=== PATIENT | female | born 1950 | race Caucasian/White ===

== ENCOUNTER 2019-03-26 13:09 | Inpatient (IN) | payer MEDICARE, OTHER ==
[~2019-03-26] VITALS: Ht 172.7 cm; Wt 89.7 kg
--- NOTE | ~2019-03-26 | OP ---
PATIENT NAME: MOOKIE SUAREZ MEDICAL RECORD: [id number] :50 [facility] ADMISSION DATE:04/04/19 SURGEON: LINWOOD BARONE MD DATE OF OPERATION: 04/04/2019 SURGEON: Linwood Barone MD ANESTHESIA: General endotracheal, Dr. Hardin. OPERATION PERFORMED: Right carotid endarterectomy with patch angioplasty. PREOPERATIVE DIAGNOSIS: Severe right internal carotid artery stenosis. POSTOPERATIVE DIAGNOSIS: Severe right internal carotid artery stenosis. INDICATION FOR OPERATION: Severe right internal carotid artery stenosis. FINDINGS AT OPERATION: Severe right internal carotid artery stenosis. There were no EEG changes with clamping or unclamping of the carotid artery. ESTIMATED BLOOD LOSS: Less than 100 cc. DESCRIPTION OF PROCEDURE: After informed consent, adequate preoperative medication evaluation, the patient was brought to the operating room and placed on the table in the supine position. After induction of general endotracheal anesthesia and application of appropriate monitoring devices, the right neck and chest were prepped and draped in a sterile field, utilizing Betadine scrub, alcohol, and Betadine solution. Betadine-impregnated drape was also used. An oblique incision was made in the skin crease. Dissection carried down to the fascia. Hemostasis maintained with electrocautery. The facial vein was identified and divided. Utilizing sharp dissection, the common carotid, internal and external carotid arteries were dissected free from surrounding structures, protecting the neurological structures. The patient was given a calculated dose of heparin, after 3 minutes, clamps were applied. After 2 minutes, no EEG change. The arteriotomy was made and extended with Barnes scissors. Artery underwent endarterectomy sharply. Artery underwent extensive debridement and irrigation. Utilizing a CorMatrix vascular patch and running 6-0 Prolene suture, the arteriotomy was closed with a patch angioplasty technique. All maneuvers to remove trapped air were performed. The clamps were removed sequentially. There were no EEG changes. The patient was given a calculated dose of protamine to reverse the heparin. Hemostasis was achieved. A #7 Omari-Medrano drain was left in the depths of wound and brought through the base of the neck. Neck was again irrigated. Instrument count and sponge count were correct times 2. Neck was closed in layers utilizing 3-0 Vicryl on the platysma, 5-0 subcuticular Monocryl on the skin. Sterile dressings were applied. The patient tolerated the procedure well and was transferred to the CV ICU in satisfactory condition. TRANSINT:[id number] Voice Confirmation ID: [id number] DOCUMENT ID: [id number] OPERATIVE REPORT [id number] MOOKIE SUAREZ EDWARD MD CC: [id number] DICTATION DATE: 04/04/19 1045 CHILD PSYCHOLOGIST: 04/04/19 1315 [place] [address]
[2019-04-02] MEDS ORDERED: PLAVIX75 MG PO (11:29)
[2019-04-02] MEDS ORDERED: LEXAPRO20 MG PO (11:30)
[2019-04-02] MEDS ORDERED: ASPIRIN EC81 M1 PO (11:30)
[2019-04-02] MEDS ORDERED: LISINOPRIL20 MG PO (11:30)
[2019-04-02] MEDS ORDERED: SYNTHROID75 MCG PO (11:30)
[2019-04-02] MEDS ORDERED: TOPAMAX100 MG PO (11:31)
[2019-04-02] MEDS ORDERED: OMEPRAZOLE20 M1 PO (11:31)
[2019-04-02] MEDS ORDERED: CELEXA20 MG PO (11:32)
[2019-04-02 12:41] LABS: HEMATOCRIT 43.9 % (36.0-48.0); HEMOGLOBIN 14.2 g/dL (12-16); MCH 31.3 pg (26.0-34.0); MCHC 32.3 g/dL (31.0-37.0); MCV 96.7 fL (80.0-100.0); MEAN PLATELET VOLUME 11.4 fL (7.4-10.4); RBC 4.54 10x6/uL (4.00-5.40); RDW 13.8 % (11.5-14.5); WBC 6.1 10x3/uL (4.8-10.8)
[2019-04-02 12:52] LABS: INR 1.04 (0.85-1.17); PROTIME 13.1 SECONDS (11.6-15.0)
[2019-04-02 12:53] LABS: APTT 30.1 SECONDS (22.8-39.4)
[2019-04-02 13:15] LABS: ALBUMIN 3.7 g/dL (3.4-5.0); ANION GAP 14.6 mmol/L (8-16); BILIRUBIN - TOTAL 0.24 mg/dL (0.2-1.3); CALCIUM 8.7 mg/dL (8.5-10.1); CARBON DIOXIDE 24.3 mmol/L (21.0-32.0); CREATININE - SERUM 0.9 mg/dL (0.6-1.3); POTASSIUM - SERUM 3.9 mmol/L (3.5-5.1); PROTEIN - SERUM 6.9 g/dL (6.4-8.2)
[2019-04-04] VITALS (53 sets, daily range): BP systolic 110–175; BP diastolic 52–103; BMI 27.3; BMI 29.3
[2019-04-04] MEDS ORDERED: BUSPAR10 MG PO (05:26)
[2019-04-04] MEDS ORDERED: TEMAZEPAM30 MG PO (05:28)
[2019-04-04] MEDS ORDERED: OXYBUTYNIN CHLOR5 MG PO (05:29)
[2019-04-04] MEDS ORDERED: LIPITOR40 MG PO (05:29)
[2019-04-04 06:17] LABS: APPEARANCE HAZY (CLEAR); BACTERIA FEW /hpf (NEGATIVE); BILIRUBIN NEGATIVE (NEGATIVE); COLOR YELLOW (YELLOW); EPITHELIAL CELLS OCC /hpf (0-5); GLUCOSE NEGATIVE (NEGATIVE); KETONE NEGATIVE (NEGATIVE); NITRITE NEGATIVE (NEGATIVE); PROTEIN NEGATIVE (NEGATIVE); RED CELLS - URINE RARE /hpf (0-5); SPECIFIC GRAVITY 1.015 (1.005-1.020); WHITE CELLS - URINE OCC /hpf (NEGATIVE)
[2019-04-04 06:18] LABS: CALCIUM OXALATE CRYSTALS OCC /hpf (NONE SEEN); TALC POWDER CRYSTALS RARE /hpf (NONE SEEN)
--- NOTE | 2019-04-04 14:37 | NUR ---
PT PERFORMING I.S. EXERCISES. PULLS [id number]. SPRITE PROVIDED AT THIS TIME. WILL CONTINUE TO MONITOR.
--- NOTE | 2019-04-04 15:04 | NUR ---
RE-ASSESSMENT COMPLETED. PT RESTING COMFORTABLY. NO FEVER NOTED. ON CLEVIPREX AT 8MG/HR AND NITRO AT 16.67MCG/MIN. SBP IN 130S PER CORA. ICE BAG ON RIGHT SIDE OF NECK. EMPTIED 20ML FROM LUDIN DRAIN AND RECOMPRESSD. STERILE GLOVES AND CLOROPREP USED. NO FURTHER NEEDS AT THIS TIME. WILL CONTINUE TO MONITOR.
--- NOTE | 2019-04-04 17:27 | NUR ---
SITTING UP IN BED EATING AT THIS TIME. NO SIGNS OF NAUSEA NOTED. WILL CONTINUE TO MONITOR.
--- NOTE | 2019-04-04 19:00 | NUR ---
REPORT RECEIVED, SHIFT ASSESSMENT COMPLETE PER FLOW SHEET, PT SITTING UP IN BED AWAKE AND ALERT x4, ANSWERS QUESTIONS APPROPRIATLY, RT UPPER CHEST LUDIN DRAIN COMPRESSED, RED DRAINAGE NOTED IN LUDIN BULB, DRSG C/D/I, RCEA SITE C/D/I DRSG SUPPORTED WITH TEGADERM DRSG, CRITICORE VARELA CATH WITH CLEAR YELLOW VOID, STATLOCK SECURED TO RT UPPER THIGH, BLE TYE HOSE AND SCD'S, PULSES PALPABLE AND SENSORY PRESENT IN ALL EXTREMITIES, LEFT SUBCLAVIAN CVL PATENT DRSG C/D/I, RT RADIAL ART LINE ZEROED WITH GOOD WAVEFORM NOTED ON CM, VSS, NSR ON CM, CALL LIGHT IN REACH, BED ALARM ON, WILL CONTINUE TO MONITOR
--- NOTE | 2019-04-04 21:30 | NUR ---
MEDS GIVEN PER MAR/ORDERS, NO ACUTE S/S OF DISTRESS NOTED, PT ABLE TO SWALLOW LIQUIDS AND MEDS, PT C/O INCISIONAL ACHING PAIN RATED 4/10 ON NUMERIC PAIN SCALE, PRN ULTRAM PAIN MED GIVEN PER MAY/ORDERS, VSS, NSR ON CM, LARGE CUP ICE WATER GIVEN PER REQUEST, CALL LIGHT IN REACH, BED ALARM ON, WILL CONTINUE TO MONITOR
--- NOTE | 2019-04-04 23:00 | NUR ---
REASSESSMENT COMPLETE PER FLOW SHEET, NO ACUTE CHANGES FROM PRIOR ASSESSMENT, PT AWAKE AND ALERT WATCHING TV, ANSWERS ALL QUESTIONS APPROPRIATLY, DENIES PAIN OR NEEDS AT THIS TIME, I/S COMPLETED [id number] WITH GOOD EFFORT, TCDB COMPLETED, VSS, NSR ON CM, CALL LIGHT IN REACH, BED ALARM ON, WILL CONTINUE TO MONITOR
[2019-04-05] VITALS (57 sets, daily range): BP systolic 101–149; BP diastolic 46–91
--- NOTE | 2019-04-05 01:00 | NUR ---
PT RESTING IN BED WITH EYES CLOSED, WAKES EASY WITH MINIMAL STEMULI, AAOx4, DENIES PAIN OR NEEDS AT THIS TIME, VSS, REPOSITIONED IN BED FOR COMFORT, CALL LIGHT IN REACH, WILL CONTINUE TO MONITOR
--- NOTE | 2019-04-05 03:00 | NUR ---
REASSESSMENT COMPLETE PER FLOW SHEET, NO ACUTE CHANGES FROM PRIOR ASSESSMENT, PT AAOx4, DENIES PAIN AT THIS TIME, REPOSITIONED FOR COMFORT, VSS, NSR ON CM, ALL DRSG'S C/D/I, I/S COMPLETED [id number] WITH GOOD EFFORT, TCDB COMPLETED, LARGE CUP ICE WATER GIVEN PER REQUEST, CALL LIGHT IN REACH, BED ALARM ON, WILL CONTINUE TO MONITOR
--- NOTE | 2019-04-05 07:13 | NUR ---
SHIFT REPORT RECEIVED. AWAKE AND ALERT. RATES PAIN 4/10 ON NECK. REPORTS SORE THROAT. R NECK DRESSING INPLACE. RU CHEST LUDIN DRAIN WITH DRESSING IN PLACE. SEROSANG DRAINAGE NOTED. LEFT SUBCLAVIAN CVL WITH ZINACEF AT 11.4ML/HR, PLASMOLYTE AT 30ML/HR AND NITORGLYCERIN AT 20MCG/MIN. ORAL TEMP 98.2. 02 AT 1L NC. RIGHT RADIAL CORA IN PLACE, SECURED WITH WRIST PROTECTOR. VARELA CATHETER IN PLACE WITH YELLOW URINE NOTED. SCD'S IN PLACE. SAFETY MEASURES IN PLACE. CALL LIGHT IN REACH. WILL CONTINUE TO MONITOR.
--- NOTE | 2019-04-05 10:32 | NUR ---
VARELA CATHETER AND RIGHT RADIAL CORA DC'D PER DR. BARONE. LOPRESSOR GIVEN PER ORDERS. PT RESTING COMFORTABLY IN BED. SPOUSE AT BEDSIDE. WILL CONTINUE TO MONITOR.
--- NOTE | 2019-04-05 13:07 | NUR ---
AMBULATED TO BATHROOM WITH ASSISTANCE. UNMEASURED VOID AT THIS TIME. SITTING ON SIDE OF BED. CALL LIGHT IN REACH. WILL CONTINUE TO MONITOR.
--- NOTE | 2019-04-05 13:15 | NUR ---
TRANSFERRED TO CHAIR AT THIS TIME. UNSTEADY GAIT. NEEDS ASSISTANCE WHEN AMBULATING.
--- NOTE | 2019-04-05 14:32 | NUR ---
AMBULATED ABOUT 300FT WITH PHYSICAL THERAPY. UNTEADY GAIT NOTED. PHYSICAL THERAPY RECOMMENDED PT AMBULATE WITH CANE AT HOME. SBP 186 AFTER AMBULATION. MELISSA SINCLAIR WITH DR. BARONE NOTIFIED. WILL LET PT SETTLE DOWN FROM WALK AND RECHECK BP AGAIN.
--- NOTE | 2019-04-05 17:05 | NUR ---
AMBULATED TO BATHROOM WITH ASSISTANCE. MEAL TRAY DELIVERED AND SET UP. SPOUSE AT BEDSIDE. WILL CONTINUE TO MONITOR.
--- NOTE | 2019-04-05 19:00 | NUR ---
REPORT RECEIVED. RECEIVED PATIETN IN BED. AWAKE ALERT AND ORIENTED X 4. SPEECH CLEAR. MONITORS CONNECTED TO PATIENT WITH ALARMS SET. VSS. ASSESSMENT COMPLETED PER FLOW SHEET WITH NO ACUTE DISTRESS OBSERVED. CALL LIGHT IN REACH AND ABLE TO UTILIZE TO MAKE NEEDS KNOWN.
--- NOTE | 2019-04-05 21:00 | NUR ---
PM MEDS TAKEN WITHOUT DIFF. VSS
--- NOTE | 2019-04-05 23:00 | NUR ---
RESTING WITH EYES CLOSED, EASILY ROUSED AND ALERT. VSS. REASSESSMENT COMPLETED PER FLOW SHEET WITH WITH NO ACUTE DISTRESS OBSERVED. CALL LIGHT IN REACH
[2019-04-06] VITALS (12 sets, daily range): BP systolic 109–148; BP diastolic 59–84; Ht 172.7 cm; Wt 89.7 kg
--- NOTE | 2019-04-06 01:00 | NUR ---
RESTING WITH EYES CLOSED, EASILY ROUSED AND ALERT. VSS
--- NOTE | 2019-04-06 03:00 | NUR ---
RESTING WITH EYES CLOSED, EASILY ROUSED AND ALERT. VSS
--- NOTE | 2019-04-06 05:00 | NUR ---
RESTING WITH EYES CLOSED EASILY ROUSED AND ALERT. VSS. REFUSED CHG BATH THIS AM STATES WILL WAIT TO SHOWER AT HOME. CALL LIGHT WITH IN REACH.
--- NOTE | 2019-04-06 10:56 | NUR ---
DR BARONE AT BEDSIDE-SPOKE WITH PT REGARDING STATUS-AND POSSIBLE
[2019-04-06] MEDS ORDERED: METOPROLOL TART50 MG PO (10:59)
--- NOTE | 2019-04-06 12:17 | NUR ---
ECHOCARDIOGRAM COMPLETE-PT REMAINS IN UNIT
--- NOTE | 2019-04-06 13:49 | NUR ---
DISCHARGE FROM DR BARONE RECTRISTIANVED ULTRAM 50MG PO GIVEN-/C'D PER PROTOCOL-L CVL D DISCHARGED VIA WHEELCHAIR HOME
--- NOTE | 2019-04-08 16:01 | MORECARE ---
CASE MANAGEMENT DISCHARGE SUMMARY PATIENT: MOOKIE SUAREZ UNIT: [id number] ADM DATE: 04/04/19 AGE: 69 : 50 SEX: F [facility] AUTHOR: AVA,DOC PHYSICIAN: REFERRING PHYSICIAN: LINWOOD BARONE MD DATE OF SERVICE: 04/08/19 Discharge Plan Patient Name: MOOKIE SUAREZ Facility: [facility]:[place] : 1950 Planned Disposition: Anticipated Discharge Date: Discharge Date: 04/06/2019 Expected LOS: Initial Reviewer: [email or web address] Initial Review Date: 04/06/2019 Generated: 04/08/19 5:00 pm Comments DCP- Discharge Planning Updated by [email or web address]: Gisele Gramajo on 04/08/19 2:[address] LATE ENTRY 04/06/2019 Patient Name: MOOKIE SUAREZ Admission Status: Urgent Accout number: [id number] Admission Date: 04-04-2019 : 1950 Admission Diagnosis: Attending: LINWOOD BARONE Current LOS: 2 Anticipated DC Date: Planned Disposition: Primary Insurance: MEDICARE A & B Discharge Planning Comments: CM met with patient to complete initial dc planning assessment. CM educated patient on the CM role and verbal consent given by patient to complete assessment. Patient lives at home with her where she is independent with her care. At discharge patient plans to return home and feels this is a safe discharge. CM discussed availability of home health, rehab services, and medical equipment. Her will be her certified driver examiner home. Patient denied known discharge needs at this time. CM will continue to follow and will assist as needed with dc plans/needs. Hatchery Manager: Gisele Gramajo DCPIA - Discharge Planning Initial Assessment Updated by [id number]: Gisele Gramajo on 04/08/19 3:53 pm * Is the patient Alert and Oriented? Yes * How many steps to enter\exit or inside your home? * PCP [facility] * Pharmacy [facility] * Preadmission Environment Home with Family * ADLs Independent * Equipment None * List name and contact numbers for known caregivers / representatives who currently or will assist patient after discharge: SHREE SUAREZ - SPOUSE - [phone] * Verbal permission to speak to the caregivers and representatives has been obtained from the patient. Yes * Community resources currently utilized None * Additional services required to return to the preadmission environment? No * Can the patient safely return to the preadmission environment? Yes * Has this patient been hospitalized within the prior 30 days at any hospital? No Patient Name: MOOKIE SUAREZ Page [id number] at 1601 All edits/amendments must be made on the electronic document DICTATION DATE: 04/08/191599 DOPE AND FABRIC WORKER: ELY 04/08/191599 RPT#: [id number] DC DATE:04/06/19 STATUS: DIS IN [facility] [address] [place] [address] END OF REPORT
--- NOTE | 2019-04-09 12:18 | EC ---
PATIENT:MOOKIE SUAREZ DATE OF SERVICE: 04/04/19 SEX: F MEDICAL RECORD: [id number] DATE OF : [birth year] LOCATION:[place] [address] AGE OF PATIENT: 69 ADMISSION DATE: 04/04/19 REFERRING PHYSICIAN: INTERPRETING PHYSICIAN: TWAN PRITCHETT MD ECHOCARDIOGRAM REPORT ECHO CHARGES 4 ECHO COMPLETE Date: 04/06/19 CLINICAL DIAGNOSIS: PAF ECHOCARDIOGRAPHIC MEASUREMENTS (adult normal given) AC root (d.<3.7cm) 2.5 cm LV Septum d (<1.2 cm> 1.2 cm Valve Excursion 1.2 cm LV Septum (systole) 1.6 cm Left Atria (s.<4.0cm> 3.9 cm LVPW d(<1.2cm) 1.3 cm RV (d.<2.3cm) 3.0 cm LVPW (sytole) 1.4 cm LV diastole(<5.6CM) 4.2 cm MV E-F(>70mm/sec) cm LV systole 3.5 cm LVOT Diameter 1.9 cm MV exc.(>10mm) cm Est.ejection fraction (50-75%) % DOPPLER: LVIT cm/sec A 120 cm/sec E 80 cm/sec LA cm/sec RVSP 40.8 mmHg LVOT 86 cm/sec AOP1/2T m/s Asc. Ao 246 cm/sec RVOT 59 cm/sec RA cm/sec PA 70 cm/sec AV Gradient Peak 24.2 mmHg AV Mean 11.1 mmHg AV Area 1.2 cm MV Gradient Peak 6.6 mmHg MV Mean 2.3 mmHg MV Area cm COMMENTS: Ethical Hacker: Jose Carlos BEAVER Tie Fastener: 3 Dr. Mortensen TAPE# PACS Pericardial Effusion N DATE OF SERVICE: 04/06/2019 Adequate 2D echo, color flow, spectral Doppler, and M-mode. Borderline LVH. LV internal dimension is normal. Wall motion is normal. EF is greater than or equal to 55%. Aortic valve is sclerosis with mild stenosis, peak gradient 24 mmHg putting this in mild range. Left atrium is normal. Mitral valve shows no prolapse. Trace MR. Right-sided chambers are grossly normal. Mild TR. ECHOCARDIOGRAM REPORT [id number] MOOKIE SUAREZ TRANSINT:[id number] Voice Confirmation ID: [id number] DOCUMENT ID: [id number] TWAN PRITCHETT MD at 1218 CC: [id number] DICTATION DATE: 04/06/[address] CONDUCTOR: 04/06/192009 DIS IN 04/06/19 [facility] [address] [place] [address]
== END 2019-04-06 13:51 | disposition home or self-care (01) | DRG 39 ==
LOC: D.CVICU 04-04 05:00 → D.SDCHOLD 04-04 05:00 → D.CVICU 04-04 10:56
PROVIDERS: ADMIT Internal Medicine Cardiovascular Disease; ATTEND Internal Medicine Cardiovascular Disease
PROC: 03UK0JZ Supplement Right Internal Carotid Artery with Synthetic Substitute, Open Approach (ICD-10-PCS; 2019-04-04)
PROC: 03CK0ZZ Extirpation of Matter from Right Internal Carotid Artery, Open Approach (ICD-10-PCS; principal; 2019-04-04 07:30)
DX: I65.21 Occlusion and stenosis of right carotid artery (principal); I10 Essential (primary) hypertension; E78.5 Hyperlipidemia, unspecified; E03.9 Hypothyroidism, unspecified; I48.0 Paroxysmal atrial fibrillation; K21.9 Gastro-esophageal reflux disease without esophagitis; I25.10 Atherosclerotic heart disease of native coronary artery without angina pectoris

== ENCOUNTER → 2019-11-15 10:06 | Outpatient (CLI) | payer MEDICARE, OTHER ==
[2019-04-06 08:51] VITALS: BMI 29.3
[~2019-11-15 10:06] MED LIST: ASPIRIN EC81 M1 PO; BUSPAR10 MG PO; CELEXA20 MG PO; LEXAPRO20 MG PO; LIPITOR40 MG PO; LISINOPRIL20 MG PO; METOPROLOL TART50 MG PO; OMEPRAZOLE20 M1 PO; OXYBUTYNIN CHLOR5 MG PO; PLAVIX75 MG PO; SYNTHROID75 MCG PO; TEMAZEPAM30 MG PO; TOPAMAX100 MG PO
== END | disposition home or self-care (01) ==
LOC: D.CT 10:06
PROVIDERS: ATTEND Surgery
DX: M79.604 Pain in right leg (principal); I70.201 Unspecified atherosclerosis of native arteries of extremities, right leg